=== PATIENT | female | born 1985 ===

== ENCOUNTER 2017-09-15 16:51 | Emergency (ER) | payer MEDICAID ==
[2017-09-15 17:38] VITALS: BMI 33.3
[2017-09-15] MEDS ORDERED: Albuterol 0.083% Inhal Sol (2.5 mg/3 mL) UD INH STA (17:46)
--- NOTE | 2017-09-15 17:46 | ED PDOC ---
Arrival/HPI - General Time Seen by Provider: 09/15/17 17:36 Historian: Patient - History of Present Illness Narrative History of Present Illness (Text): 09/15/17 17:43 32yo female with PMHx of Diabetes present with 2days history of burning sore throat, cough with headache. States she gets headache whenever she coughs. She did not take any medication. She denies fever, chills, nausea, vomiting, sick contact, any other complaint. she notes that she is currently 5months . Past Medical History - Provider Review Nursing Documentation Reviewed: Yes Family/Social History - Physician Review Nursing Documentation Reviewed: Yes Family/Social History: Unknown Family HX Allergies/Home Meds Allergies/Adverse Reactions: Allergies No Known Allergies Allergy (Verified 09/15/17 17:52) Home Medications: Home Meds Medication Instructions Recorded Confirmed humALOG 100 units SC ACHS 09/15/17 09/15/17 Review of Systems - Physician Review All systems were reviewed & negative as marked: Yes - Review of Systems Constitutional: Normal Eyes: Normal ENT: Sore Throat Respiratory: Cough. absent: SOB, Sputum, Wheezing Cardiovascular: Normal Gastrointestinal: Normal Genitourinary Female: Normal Musculoskeletal: Normal Skin: Normal Neurological: Normal Endocrine: Normal Hemo/Lymphatic: Normal Psychiatric: Normal Physical Exam Vital Signs Reviewed: Yes Vital Signs Temp Pulse Resp BP Pulse Ox 09/15/17 17:48 99.3 F 105 H 17 114/73 98 Temperature: Afebrile Blood Pressure: Normal Pulse: Regular Respiratory Rate: Normal Appearance: Positive for: Well-Appearing, Non-Toxic, Comfortable Pain Distress: None Mental Status: Positive for: Alert and Oriented X 3 - Systems Exam Head: Present: Atraumatic, Normocephalic Pupils: Present: PERRL Extroacular Muscles: Present: EOMI Conjunctiva: Present: Normal Mouth: Present: Moist Mucous Membranes Pharnyx: Present: Normal. No: ERYTHEMA, EXUDATE, TONSILS ENLARGED, Peritonsilar Swelling, Uvular Deviation, Muffled/Hoarse Voice, Strider, Soft Palate/Uvular Edema Neck: Present: Normal Range of Motion Respiratory/Chest: Present: Clear to Auscultation, Good Air Exchange. No: Respiratory Distress, Accessory Muscle Use Cardiovascular: Present: Regular Rate and Rhythm, Normal S1, S2. No: Murmurs Abdomen: No: Tenderness, Distention, Peritoneal Signs Back: Present: Normal Inspection Upper Extremity: Present: Normal Inspection. No: Cyanosis, Edema Lower Extremity: Present: Normal Inspection. No: Edema Neurological: Present: GCS=15, CN II-XII Intact, Speech Normal Skin: Present: Warm, Dry, Normal Color. No: Rashes Psychiatric: Present: Alert, Oriented x 3, Normal Insight, Normal Concentration Medical Decision Making - Lab Interpretations Lab Results: Lab Results 09/15/17 18:25: Grp A Beta Strep Ag Negative - Medication Orders Current Medication Orders: Discontinued Medications Acetaminophen (Tylenol 325mg Tab) 650 mg PO STAT STA Stop: 09/15/17 17:39 Last Admin: 09/15/17 18:23 Dose: 650 mg MAR Pain/Vitals Document 09/15/17 18:23 MS (Rec: 09/15/17 18:24 MS [id number]) Pain Reassessment Is This A Pain ReAssessment? No Sleep Is patient sleeping during reassessment? No Presence of Pain Presence of Pain Yes Pain Scale Used Pain Scale Used Numeric Location Pain Location Body Site Throat Description Constant Intensity 9 Scale Used Numeric Albuterol Sulfate (Albuterol 0.083% Inhal Angely (2.5 Mg/3 Ml) Ud) 2.5 mg INH STAT STA Stop: 09/15/17 17:47 Last Admin: 09/15/17 18:23 Dose: 2.5 mg Disposition/Present on Arrival - Present on Arrival Any Indicators Present on Arrival: No History of DVT/PE: No History of Uncontrolled Diabetes: No Urinary Catheter: No History of Decub. Ulcer: No History Surgical Site Infection Following: None - Disposition Have Diagnosis and Disposition been Completed?: Yes Diagnosis: Cough, Sore throat, Headache Disposition: HOME/ ROUTINE Disposition Time: 19:00 Patient Plan: Discharge Condition: STABLE Discharge Instructions (ExitCare): Sore Throat in Adults, Cough, Adult (DC) Additional Instructions: Follow up with your Doctor Return to ED for any new or worsening symptoms Prescriptions: Albuterol HFA [Ventolin HFA 90 mcg/actuation (8 g)] 2 puff IH [id number] #1 puff
[2017-09-15 17:51] VITALS: O2SAT 98
[2017-09-15 23:56] VITALS: BP 120/68; PULSE 96; RESP 16; TEMP 98.9
== END 2017-09-15 19:20 | disposition home or self-care (01) ==
LOC: ED 16:51
DX: R51 Headache (principal); J02.9 Acute pharyngitis, unspecified; R05 Cough; E11.9 Type 2 diabetes mellitus without complications